=== PATIENT | female | born 1985 | race Two or more races ===

== ENCOUNTER 2021-08-06 13:10 | Observation (INO) | payer BC ==
[2021-08-06 14:14] LABS: BILIRUBIN,URINE NEGATIVE (NEG); CLARITY,URINE CLEAR; COLOR,URINE YELLOW; NITRITE,URINE NEGATIVE (NEG); PH,URINE 5.5 (<5.0-8.0); PROTEIN,URINE NEGATIVE (NEG-TRACE); UROBILINOGEN,URINE 0.2 mg/dL (0.2 mg/dL)
[2021-08-06 14:40] LABS: BACTERIA,URINE FEW /HPF (0-FEW); RBC,URINE 0 /HPF (0-2)
== END 2021-08-06 15:20 | disposition home or self-care (01) ==
LOC: 3 SO LND 13:10
PROVIDERS: ADMIT Registered Nurse; ATTEND Registered Nurse
DX: O12.03 Gestational edema, third trimester (principal); Z3A.38 38 weeks gestation of pregnancy
CPT/HCPCS: 59025; 81001; G0378; G0379

== ENCOUNTER 2021-08-20 06:26 | Inpatient (IN) | payer BC ==
[~2021-08-20] VITALS: Ht 160 cm; Wt 94.0 kg
[2021-08-20] MEDS ORDERED: LIDOCAINE 1% PF 30 ML VIAL. INJ PRN (07:45)
[2021-08-20] MEDS ORDERED: BUTORPHANOL 2 MG/ML VIAL. IVP PRN ×2 (07:45)
[2021-08-20] MEDS ORDERED: CITRIC ACID/SODIUM CITRATE 30 ML SOLUTION. PO PRN (07:45)
[2021-08-20] MEDS ORDERED: 0.9 % SODIUM CHLORIDE 10 ML DISP.SYRIN. IV PRN ×2 (07:45→13:15)
[2021-08-20] MEDS ORDERED: ONDANSETRON PF 4 MG/2 ML VIAL. IVP PRN (07:45)
[2021-08-20] MEDS ORDERED: TERBUTALINE 1 MG/ML VIAL. SQ PRN (07:45)
[2021-08-20] MEDS ORDERED: OXYTOCIN 30 UNIT/500 ML PREMIX 500 ML IV PRN ×3 (07:45→13:30)
[2021-08-20] MEDS ORDERED: IBUPROFEN 400 MG TABLET. PO PRN (07:45)
[2021-08-20] MEDS ORDERED: IV RINGERS,LACTATED 1000ML 1,000 ML IV SCH (08:00)
[2021-08-20] MEDS ORDERED: OXYTOCIN PREMIX 30 UNIT/500 ML NS BAG. IV ONE (08:00)
[2021-08-20 08:11] LABS: BILIRUBIN,URINE NEGATIVE (NEG); CLARITY,URINE CLOUDY; COLOR,URINE YELLOW; NITRITE,URINE NEGATIVE (NEG); PROTEIN,URINE 30 mg/dL (NEG-TRACE)
[2021-08-20 08:32] LABS: BACTERIA,URINE MODERATE /HPF (0-FEW); RBC,URINE OCC /HPF (0-2)
[2021-08-20 08:42] VITALS: BP 137/71
[2021-08-20 10:05] LABS: BASO % 0 % (0-3); EOS % 0 % (0-3); HEMATOCRIT 34.7 % (36.0-47.0); HEMOGLOBIN 11.2 g/dL (12.0-15.5); LYMPH # 2.1 x10^3/uL (1.0-4.8); LYMPH % 20 % (24-48); MEAN CORPUSCULAR HEMOGLOBIN 28 pg (25-35); MEAN CORPUSCULAR HGB CONC 32 g/dL (31-37); MEAN CORPUSCULAR VOLUME 86 fL (79-100); MONO # 0.8 x10^3/uL (0.0-1.1); MONO % 7 % (0-9); NEUT # 7.7 x10^3/uL (1.8-7.7); NEUT % 72 % (31-73); PLATELET COUNT 217 x10^3/uL (140-400); RED BLOOD COUNT 4.04 x10^6/uL (3.50-5.40); RED CELL DISTRIBUTION WIDTH 14.2 % (11.5-14.5); WHITE BLOOD COUNT 10.7 x10^3/uL (4.0-11.0)
--- NOTE | 2021-08-20 10:19 | PDOC1 ---
NETWORK COMMUNICATIONS ENGINEER H&P Date of Admission: Date of Admission: Aug 20, 2021 at 06:26 History of Present Illness: EDC: 08/20/21 LMP: 11/13/20 35y @ 40.0 by L=20 presents for scheduled indxn. The pt has had a relatively uncomplicated outside of being AMA. PMH: Denies PSH: Denies Meds: PNV, ASA All: NKDA OBHx: TSVD x 2 SH: no tob, no EtOH FH: DM, HTN Allergies: Coded Allergies: No Known Drug Allergies (Unverified , 08/06/21) Physical Exam: Vital Signs: Vital Signs Date Time Temp Pulse Resp B/P (MAP) Pulse Ox O2 Delivery O2 Flow Rate FiO2 08/20/21 08:42 98.4 80 20 137/71 (93) 98.4 PE: GENERAL: No apparent distress. Alert and oriented. HEENT: Head normocephalic, atraumatic. NECK: Supple LUNGS: Clear to auscultation. HEART: RRR, S1, S2 present, pulses intact ABDOMEN: Soft, positive bowel sounds. EXTREMITIES: No cyanosis or edema. NEUROLOGIC: Normal speech, normal tone PSYCHIATRIC: Normal affect, normal mood. SKIN: No ulceration. FHT: 120s +acels/no decels/mLTV [place]: 1-3 min SVE: 4/50/-2 Labs: Laboratory Tests Test 08/20/21 07:20 08/20/21 09:30 Urine Collection Type Unknown Urine Color Yellow Urine Clarity Cloudy Urine pH 6.0 (<5.0-8.0) Urine Specific [place] >=1.030 (1.000-1.030) Urine Protein 30 mg/dL (NEG-TRACE) Urine Glucose (UA) Negative mg/dL (NEG) Urine Ketones (Stick) Negative mg/dL (NEG) Urine Blood Negative (NEG) Urine Nitrite Negative (NEG) Urine Bilirubin Negative (NEG) Urine Urobilinogen Dipstick 1.0 mg/dL (0.2 mg/dL) Urine Leukocyte Esterase Moderate (NEG) Urine RBC Occ /HPF (0-2) Urine WBC 11-20 /HPF (0-4) Urine Squamous Epithelial Cells Many /LPF Urine Bacteria Moderate /HPF (0-FEW) Urine Mucus Slight /LPF White Blood Count 10.7 x10^3/uL (4.0-11.0) Red Blood Count 4.04 x10^6/uL (3.50-5.40) Hemoglobin 11.2 g/dL (12.0-15.5) L Hematocrit 34.7 % (36.0-47.0) L Mean Corpuscular Volume 86 fL (79-100) Mean Corpuscular Hemoglobin 28 pg (25-35) Mean Corpuscular Hemoglobin Concent 32 g/dL (31-37) Red Cell Distribution Width 14.2 % (11.5-14.5) Platelet Count 217 x10^3/uL (140-400) Neutrophils (%) (Auto) 72 % (31-73) Lymphocytes (%) (Auto) 20 % (24-48) L Monocytes (%) (Auto) 7 % (0-9) Eosinophils (%) (Auto) 0 % (0-3) Basophils (%) (Auto) 0 % (0-3) Neutrophils # (Auto) 7.7 x10^3/uL (1.8-7.7) Lymphocytes # (Auto) 2.1 x10^3/uL (1.0-4.8) Monocytes # (Auto) 0.8 x10^3/uL (0.0-1.1) Eosinophils # (Auto) 0.0 x10^3/uL (0.0-0.7) Basophils # (Auto) 0.0 x10^3/uL (0.0-0.2) Laboratory Tests 08/20/21 09:30 Laboratory Tests 08/20/21 09:30 Assessment & Plan: A/P 35y @ 40.0 by L=20 1.) Indxn on Pit, AROM/cl 2.) AMA - on ASA, quad screen neg 3.) Rochelle NI 4.) Elevated GTT - 0 of 4 values elevated on 3hr GTT 5.) Covid vaccine given 04/23/21, 05/15/21 6.) Flu vaccine given 06/19/21 7.) TDAP given 05/30/21 8.) Fetus cat I FHT 9.) GBS neg LIZ DUMONT MD Aug 20, 2021 10:19
--- NOTE | 2021-08-20 13:13 | PDOC4 ---
VAGINAL DELIVERY DATE DATE: 08/20/21 TIME: 13:13 TIME Patient delivered a viable male over intact perineum at 1222. Wt 3960 g. Apgars 8/9. Placenta delivered spontaneously, intact with 3VC. No lacerations noted. Good hemostasis noted. 20 U of Pit given with IVF. EBL 200 cc. WEIGHT Weight [ ] LIZ DUMONT MD Aug 20, 2021 13:13
[2021-08-20] MEDS ORDERED: DOCUSATE SODIUM 100 MG CAPSULE. PO PRN (13:15)
[2021-08-20] MEDS ORDERED: MMR per PROTOCOL. MC PRN (13:15)
[2021-08-20] MEDS ORDERED: BENZOCAINE 20% TOPICAL AEROSOL SPRAY 57GM CAN. TP PRN (13:15)
[2021-08-20] MEDS ORDERED: SIMETHICONE 80 MG TAB.CHEW PO PRN (13:15)
[2021-08-20] MEDS ORDERED: PHENYLEPH/MINERAL OIL/PETROLAT RECTAL OINTMENT TUBE. RC PRN (13:15)
[2021-08-20] MEDS ORDERED: MAG HYDROX/ALUMINUM HYD/SIMETH 30 ML ORAL.SUSP PO PRN (13:15)
[2021-08-20] MEDS ORDERED: ZOLPIDEM 5 MG TABLET. PO PRN (13:15)
[2021-08-20] MEDS ORDERED: HYDROCORTISONE 1% TOPICAL OINTMENT 30GM TUBE. TP PRN (13:15)
[2021-08-20] MEDS ORDERED: MAGNESIUM HYDROXIDE 2,400 MG/30 ML ORAL.SUSP. PO PRN (13:15)
[2021-08-20] MEDS ORDERED: TDaP (BOOSTRIX) per PROTOCOL. MC PRN (13:15)
[2021-08-20] MEDS ORDERED: diphenhydrAMINE HCL 25 MG CAPSULE PO PRN (13:15)
[2021-08-20] MEDS ORDERED: ACETAMINOPHEN 325 MG TABLET. PO PRN (13:15)
[2021-08-20] MEDS ORDERED: oxyCODONE/APAP 5/325 1 TAB TABLET PO PRN (13:15)
[2021-08-20 17:01] VITALS: BP 122/55
[2021-08-20 22:37] VITALS: BP 121/68
[2021-08-21 02:40] VITALS: BP 125/73
[2021-08-21 04:41] LABS: HEMATOCRIT 31.9 % (36.0-47.0); HEMOGLOBIN 10.1 g/dL (12.0-15.5); RED BLOOD COUNT 3.68 x10^6/uL (3.50-5.40); WHITE BLOOD COUNT 13.6 x10^3/uL (4.0-11.0)
[2021-08-21 06:52] VITALS: BP 100/58
[2021-08-21] MEDS: FERROUS SULFATE 325 MG TABLET. PO SCH ×2 (08:00→17:00)
[2021-08-21] MEDS: IBUPROFEN 400 MG TABLET. PO PRN ×2 (08:45→18:02)
[2021-08-21] MEDS: PRENATAL MULTIVITAMIN TABLET. PO SCH (08:45)
--- NOTE | 2021-08-21 10:14 | PDOC ---
HOT MILL WORKER PROGRESS NOTE Date of Service: DATE: 08/21/21 TIME: 10:13 Subjective: Pt with good pain control. Aracelis PO. Voiding. Minimal lochia. Objective: Vital Signs: Vital Signs Date Time Temp Pulse Resp B/P (MAP) Pulse Ox O2 Delivery O2 Flow Rate FiO2 08/20/21 08:42 98.4 80 20 137/71 (93) 98.4 08/20/21 22:37 98 Room Air Vital Signs Date Time Temp Pulse Resp B/P (MAP) Pulse Ox O2 Delivery O2 Flow Rate FiO2 08/21/21 06:52 98.4 62 100/58 (72) 98 98.4 08/20/21 22:37 Room Air 08/20/21 17:01 20 Labs: Laboratory Tests Test 08/21/21 04:20 White Blood Count 13.6 x10^3/uL (4.0-11.0) H Red Blood Count 3.68 x10^6/uL (3.50-5.40) Hemoglobin 10.1 g/dL (12.0-15.5) L Hematocrit 31.9 % (36.0-47.0) L Mean Corpuscular Volume 87 fL (79-100) Mean Corpuscular Hemoglobin 27 pg (25-35) Mean Corpuscular Hemoglobin Concent 32 g/dL (31-37) Red Cell Distribution Width 14.0 % (11.5-14.5) Platelet Count 212 x10^3/uL (140-400) Laboratory Tests 08/21/21 04:20 Laboratory Tests 08/21/21 04:20 Physical Exam: GENERAL: No apparent distress. Alert and oriented. HEENT: Head normocephalic, atraumatic. NECK: Supple LUNGS: Clear to auscultation. HEART: RRR, S1, S2 present, pulses intact ABDOMEN: Soft, positive bowel sounds. EXTREMITIES: No cyanosis or edema. NEUROLOGIC: Normal speech, normal tone PSYCHIATRIC: Normal affect, normal mood. SKIN: No ulceration. FFNT below umb No C/C/E Assessment & Plan: A/P 35y PPD #1 s/p 1.) PP doing well 2.) Rochelle NI 3.) Covid vaccine given 04/23/21, 05/15/21 4.) Flu vaccine given 06/19/21 5.) TDAP given 05/30/21 6.) Hgb 11.2 -> 10.1 7.) Cont PP care LIZ DUMONT MD Aug 21, 2021 10:14
[2021-08-21 13:15] VITALS: BP 110/63
[2021-08-21 17:00] VITALS: BP 114/61
[2021-08-21 22:30] VITALS: BP 118/64
[2021-08-22 05:34] VITALS: BP 124/54
[2021-08-22] MEDS: FERROUS SULFATE 325 MG TABLET. PO SCH (08:00)
[2021-08-22 08:30] VITALS: BP 111/61
[2021-08-22] MEDS: PRENATAL MULTIVITAMIN TABLET. PO SCH (09:00)
[2021-08-22] MEDS: IBUPROFEN 400 MG TABLET. PO PRN (10:32)
--- NOTE | 2021-08-22 13:43 | PDOC ---
REHAB CONSULTANT PROGRESS NOTE Date of Service: DATE: 08/22/21 TIME: 13:42 Subjective: Pt with good pain control. Aracelis PO. Voiding. Minimal lochia Objective: Vital Signs: Vital Signs Date Time Temp Pulse Resp B/P (MAP) Pulse Ox O2 Delivery O2 Flow Rate FiO2 08/21/21 09:00 Room Air 08/21/21 13:15 98.3 83 20 110/63 (79) 98.3 08/22/21 08:30 98 Vital Signs Date Time Temp Pulse Resp B/P (MAP) Pulse Ox O2 Delivery O2 Flow Rate FiO2 08/22/21 08:30 98.2 78 18 111/61 (78) 98 Room Air 98.2 Physical Exam: GENERAL: No apparent distress. Alert and oriented. HEENT: Head normocephalic, atraumatic. NECK: Supple LUNGS: Clear to auscultation. HEART: RRR, S1, S2 present, pulses intact ABDOMEN: Soft, positive bowel sounds. EXTREMITIES: No cyanosis or edema. NEUROLOGIC: Normal speech, normal tone PSYCHIATRIC: Normal affect, normal mood. SKIN: No ulceration. FFNT below umb No C/C/E Assessment & Plan: A/P 35y PPD #2 s/p 1.) PP doing well 2.) Rochelle NI 3.) Covid vaccine given 04/23/21, 05/15/21 4.) Flu vaccine given 06/19/21 5.) TDAP given 05/30/21 6.) Hgb 11.2 -> 10.1 7.) D/c home LIZ DUMONT MD Aug 22, 2021 13:43
--- NOTE | 2021-08-22 14:00 | NUR ---
Pt. discharges at this time alert and oriented on room air, denies pain, vss, All belongings are returned to pt. and RN reviews all discharge instruction. Pt. ambulates out at this time, family accompanies pt.
--- NOTE | 2021-08-22 14:11 | DS ---
DATE OF DISCHARGE: 08/22/2021 ADMISSION DIAGNOSES:: 1. Intrauterine at 40 weeks and 0 days by LMP equal to 20-week ultrasound. 2. Induction of labor. 3. Advanced maternal age. 4. Varicella nonimmune. 5. Elevated GTT with normal 3-hour GTT. 6. Status post COVID vaccine. 7. Status post flu vaccine. 8. Status post Tdap. 9. GBS negative. DISCHARGE DIAGNOSES: 1. Intrauterine at 40 weeks and 0 days by LMP equal to 20-week ultrasound. 2. Induction of labor. 3. Advanced maternal age. 4. Varicella nonimmune. 5. Elevated GTT with normal 3-hour GTT. 6. COVID, status post COVID vaccine. 7. Status post flu vaccine. 8. Status post Tdap. 9. GBS negative. PROCEDURE: Spontaneous vaginal delivery. BRIEF HOSPITAL COURSE: The patient is a 35-year-old 3, para 2-0-0-2, who presented to Labor and Delivery at 40 weeks and 0 days by LMP equal to 20-week ultrasound for scheduled induction. The patient was started on Pitocin and membranes were ruptured. The patient later delivered early that afternoon, see delivery note for full detail. By day #2, the patient was meeting all discharge criteria and subsequently discharged home. Of note, the patient's hemoglobin on admission was 11.2 and after delivery was found to be 10.1. DISCHARGE INSTRUCTIONS: The patient was told not to lift anything greater than 20 pounds, have pelvic rest for 6 weeks. CALL IF: The patient was to call if she had fevers, chills, nausea, vomiting, abdominal pain or any additional questions or concerns. FOLLOWUP APPOINTMENT: The patient was to follow up on 10/03/2021 at 9:00 a.m. at [facility] for her visit. DISCHARGE MEDICATIONS: The patient was given a prescription for Motrin 800 mg, 30 pills and Colace 100 mg, [address]: Nallely TID: [id number]
--- NOTE | 2021-08-27 16:10 | PATHOLOGY ---
[facility] Accession Number: [id number] . 01 Material submitted: . placenta - PLACENTA AND CORD . 01 Clinical history: . MALE AT 1222 ON 08/20/21 ; AMA; NUCHAL CORD X1 GA: 40 weeks . 02 Diagnosis: 595 gram term placenta of an estimated 40 weeks gestation with attached membranes and umbilical cord: - Placental weight at approximate 80th percentile for estimated gestational age. - Intervillous thrombi (2), with focal villous entrapment and degenerative changes, the largest measuring 2.1 cm in greatest dimension. (GAYM:tyrone; 08/27/2021) RUST 08/27/2021 1526 Local . 02 Comment: There is no evidence of an acute chorioamnionitis or villitis. (GAYM:tyrone; 08/27/2021) . 02 Electronically signed: . Derik Childress MD, Pathologist NPI- [id number] . 01 Gross description: . Fixative: Formalin Labeled: Placenta Specimen received: Ma placenta with attached membranes and umbilical cord Trimmed placental weight: 595 g Dimensions: 18.2 x 16.8 x 3.4 cm membranes: [place]-ve[place], translucent membrane rupture: 8.5 cm from placental margin surface: Intact displaying a normal arborizing vasculature pattern Umbilical cord: 16.7 cm in length, 1.3-1.5 cm in diameter Umbilical cord insertion: Slightly eccentric, 4.3 cm from the closest placental margin Number of umbilical vessels: 3 Umbilical cord appearance: Pale macario with moderate helical twisting Maternal surface: Intact and complete with a slight amount of adherent blood coagulum Cut surfaces: Red-brown Abnormalities: Two pale macario to hemorrhagic lesions measuring 0.9 and 2.1 cm, which encompass less than 5% of the total placental volume . Assistant Professor Of Music sections are submitted as follows: A1 surface vessels and proximal umbilical cord A2 membranes and umbilical cord A3-A4 printing supplies sales representative sections from each placental lesion A5-A6 printing supplies sales representative sections of maternal surface. (CAA; 08/22/2021) QAC/QA 08/27/2021 0732 Local . 02 Pathologist provided ICD-10: O43.893, Z37.0, Z3A.40 . 02 CPT . 667756 Specimen Comment: A courtesy copy of this report has been sent to [phone] Specimen Comment: Report sent to Performed at: 01 [facility] [address], [place] [id number] MD Kimani Leyva MD Phone: [phone] Performed at: 02 [facility] [address] [place], [place] [id number] MD Derik Childress MD Phone: [phone]
== END 2021-08-22 14:00 | disposition home or self-care (01) | DRG 807 ==
LOC: 3 SO LND 06:26
PROVIDERS: ADMIT Obstetrics & Gynecology; ATTEND Obstetrics & Gynecology
PROC: 10E0XZZ Delivery of Products of Conception, External Approach (ICD-10-PCS; principal; 2021-08-20)
PROC: 10907ZC Drainage of Amniotic Fluid, Therapeutic from Products of Conception, Via Natural or Artificial Opening (ICD-10-PCS; 2021-08-20)
DX: O99.814 Abnormal glucose complicating childbirth (principal); Z37.0 Single live birth; Z3A.40 40 weeks gestation of pregnancy; Z83.3 Family history of diabetes mellitus; Z82.49 Family history of ischemic heart disease and other diseases of the circulatory system
CPT/HCPCS: 36415; 81001; 85025; 85027; 86592; 86850; 86900; 86901; 87086; G0378; J0595; J2590